=== PATIENT | female | born 1975 | race Native Hawaiian/Other Pacific Islander ===

== ENCOUNTER 2017-09-23 05:15 | Inpatient (IN) | payer OTHER ==
[2017-09-23] MEDS ORDERED: LACTATED RINGERS 1,000 ML ONE (05:49)
[2017-09-23] MEDS ORDERED: POLYCILLIN/NS 2 GM/100 ML 2 GM/100 ML BAG IV ONE ×2 (05:50→06:17)
[2017-09-23] MEDS ORDERED: PITOCin/NS 20 UNIT/1000ML DRIP 20,000 MILLIUNITS/1,000 ML BAG IV ONE (05:50)
[2017-09-23] MEDS ORDERED: LACTATED RINGERS 1,000 ML IV SCH (06:00)
[2017-09-23] MEDS ORDERED: BRETHINE SUB-Q PRN (06:17)
[2017-09-23] MEDS ORDERED: ePHEDrine SULFATE IV PRN (06:17)
[2017-09-23] MEDS ORDERED: SUBLIMAZE IV PRN (06:17)
[2017-09-23] MEDS ORDERED: XYLOCAINE 2% INFILTRATI ONE (06:17)
[2017-09-23] MEDS ORDERED: SUBLIMAZE ONE (06:21)
--- NOTE | 2017-09-23 06:24 | History and Physical Report ---
History of Present Illness Date of examination: 09/23/17 Date of admission: 09/23/17 05:31 Chief complaint: Labor History of present illness: 42 year old female reports contractions since noon yesterday. She states her water broke at midnight (6 hours, 20 minutes ago). She presents to L&D for active labor. She states she has received care at [facility] but we do not have records available and her partner states she only made 2 visits there. Patient denies any problems during this . Past History Past Medical History: no pertinent history Past Surgical History: no surgical history [employer] History: denies: herpes Family/Genetic History: diabetes Social history: , full code. denies: smoking, alcohol abuse, prescription drug abuse, IV drug use - Obstetrical History Expected Date of Delivery: 09/30/17 Actual Gestation: 39 Week(s) 0 Day(s) : 7 Para: 6 Hx # Term Pregnancies: 7 Number of Pregnancies: 0 Spontaneous Abortions: 0 Induced : 0 Number of Living Children: 6 Medications and Allergies Allergies Allergy/AdvReac Type Severity Reaction Status Date / Time No Known Allergies Allergy Verified 09/23/17 06:07 Active Meds: Active Medications Influenza Virus Vaccine Quadrival (Fluarix Quad 1423-3380(36 Mos+) 0.5 ml IM .ONCE ONE Stop: 09/23/17 12:01 Review of Systems All systems: negative (contractions and leaking of water) - Vital Signs Vital signs: Vital Signs Pulse BP 114 H 129/77 09/23/17 05:40 09/23/17 05:40 Temp Pulse Resp BP Pulse Ox 98.0 F 118 H 18 110/69 99 09/23/17 06:10 09/23/17 06:22 09/23/17 06:10 09/23/17 06:16 09/23/17 06:22 - Physical Exam Cardiovascular: Regular rate, Normal S1, Normal S2 Lungs: Positive: Clear to auscultation Abdomen: Positive: normal appearance, soft. Negative: distention, tenderness, guarding, rigidity Genitourinary (Female): Positive: normal external genitalia (no lesions seen on careful exam with bright light upon admission), normal perenium. Negative: perineal/vulvar lesions Uterus: Positive: enlarged. Negative: tender Anus/Rectum: Positive: normal perianal skin Extremities: Positive: normal. Negative: edema - Obstetrical FHR: category 1 Uterine Contraction Monitor Mode: External Cervical Dilatation: 7 Cervical Effacement Percentage: 100 station: 0 Uterine Contraction Pattern: Regular Uterine Contraction Intensity: Moderate Results Result Diagrams: 09/23/17 05:44 All other labs normal. Assessment and Plan A: at 39 weeks gestation. Active labor. GBS unknown. P: Admit. GBS prophylaxis. Anticipate .
[2017-09-23 06:39] LABS: Hematocrit 33.5 % (30.3-42.9); Hemoglobin 10.8 gm/dl (10.1-14.3); Mean Corpuscular HGB Conc 32 % (30-34); Mean Corpuscular Volume 77 fl (79-97); Platelet Count 156 K/mm3 (140-440); Red Blood Count 4.34 M/mm3 (3.65-5.03); Red Cell Distribution Width 16.9 % (13.2-15.2); White Blood Count 7.4 K/mm3 (4.5-11.0)
[2017-09-23] MEDS ORDERED: PITOCin/NS 20 UNIT/1000ML DRIP 20 UNITS/1,000 ML BAG IV SCH (07:00)
[2017-09-23 07:01] LABS: Mean Corpuscular Hemoglobin 25 pg (28-32)
--- NOTE | 2017-09-23 07:12 | Procedure Note ---
OB Delivery Note - Vaginal Delivery presentation: vertex Delivery position: OA Intrapartum events: none Delivery induction: none Delivery monitor: external FHT, external uterine Route of delivery: Delivery placenta: spontaneous Delivery cord: nuchal cord, 3 umbilical vessels Episiotomy: none Delivery laceration: 1st degree Delivery repair: vicryl Anesthesia: none Delivery comments: Spontaneous vaginal delivery of liveborn male weighing 7 lbs. 11 oz. with apgars of 8/9. Patient presented to L&D with ruptured membranes and advanced dilation. GBS status was unknown, and patient received one dose of Ampicillin prior to delivery. Tight nuchal cord noted times 1; double clamped and cut. Baby delivered easily and was placed on maternal chest immediately after delivery. Spontaneous cry and respirations. Baby bulb suctioned. Cord blood obtained. Spontaneous delivery of intact placenta and membranes by mosley mechanism. EBL 250 ml. Pitocin to IV fluids after delivery of placenta. Fundus firm and midline. 1 stitch placed in first degree laceration of perineum. Vaginal sweep negative. Sponge count correct. Mother and baby stable in birthing room.
[2017-09-23] MEDS ORDERED: TYLENOL PO PRN (08:00)
[2017-09-23] MEDS ORDERED: SODIUM CHLORIDE FLUSH SYRINGE 10 ML IV NR (08:00)
[2017-09-23] MEDS: MOTRIN PO SCH ×3 (08:25→20:26)
[2017-09-23 08:52] LABS: HIV-1 Antigen p24 Non React (Non React); HIVR-1/2 Ab Non React (Non React)
[2017-09-23] MEDS ORDERED: Fluarix Quad 2017-2018(36 MOS+ IM ONE (12:00)
[2017-09-23] MEDS ORDERED: DERMOPLAST TP PRN (14:10)
[2017-09-23] MEDS ORDERED: TUCKS PAD TP PRN (14:12)
[2017-09-23 19:18] LABS: Hematocrit 27.8 % (30.3-42.9); Hemoglobin 8.6 gm/dl (10.1-14.3)
[2017-09-24] MEDS: MOTRIN PO SCH ×4 (01:46→17:38)
--- NOTE | 2017-09-24 09:11 | Progress Note ---
Assessment and Plan A: PPD #1-stable P; Discharge home today Subjective - Subjective Date of service: 09/24/17 Principal diagnosis: Patient reports: appetite normal [place]: doing well Objective - Vital Signs Latest vital signs: Vital Signs Temp Pulse Resp BP BP Pulse Ox 09/24/17 04:20 98.6 F 81 16 106/75 09/24/17 00:00 98.6 F 66 16 117/78 09/23/17 20:30 98.6 F 71 16 121/76 09/23/17 17:22 98.2 F 56 L 18 102/58 97 09/23/17 11:55 98.3 F 64 18 106/60 Intake and Output 09/23/17 09/24/17 09/24/17 22:59 06:59 14:59 Intake Total 840 850 Output Total 400 Balance 440 850 Intake: Oral 240 250 Intake, Free Water 600 600 Output: Urine 400 Void 400 Other: Total, Intake Amount 240 250 Total, Output Amount 400 - Exam Breasts: Present: deferred Cardiovascular: Present: Regular rate Lungs: Present: Clear to auscultation Abdomen: Present: soft Vulva: both: normal Uterus: Present: fundal height below umbilicus Extremities: Present: normal Deep Tendon Reflex Grade: Normal +2 - Labs Labs: Abnormal lab results 09/23/17 Range/Units 18:59 Hgb 8.6 L (10.1-14.3) gm/dl Hct 27.8 L (30.3-42.9) %
--- NOTE | 2017-09-24 09:12 | Discharge Summary ---
Providers - Providers Date of Admission: 09/23/17 05:31 Date of discharge: 09/24/17 Attending physician: YOVANI BONNER MD Primary care physician: YOVANI BONNER MD Hospitalization Reason for admission: active labor Delivery: Episiotomy: none Laceration: none Other procedures: none complications: none Discharge diagnosis: IUP at term delivered [place] baby: male Condition at discharge: Good Disposition: DC-01 TO HOME OR SELFCARE Plan - Provider Discharge Summary Activity: routine, no sex for 6 weeks, no strenuous exercise Diet: routine Instructions: routine Additional instructions: [] Smoking cessation referral if applicable(refer to patient education folder for contact #) [] Refer to [facility] Call your doctor immediately for: * Fever > 100.5 * Heavy vaginal bleeding ( >1 pad per hour) * Severe persistent headache * Shortness of breath * Reddened, hot, painful area to leg or breast * Drainage or odor from incision. * Keep incision clean and dry at all times and follow doctor's instructions regarding bathing/showering - Follow up plan Follow up: YOVANI BONNER MD [Primary Care Provider] - 6 Weeks
[2017-09-25] MEDS: MOTRIN PO SCH (04:50)
[2017-09-25 08:55] VITALS: BP 97/61
== END 2017-09-25 13:27 | disposition home or self-care (01) | DRG 775 ==
LOC: TRG 05:15 → LD 05:31 → TRG 05:31 → OB 09:08
PROVIDERS: ADMIT Obstetrics & Gynecology; ATTEND Obstetrics & Gynecology
PROC: 3E0234Z Introduction of Serum, Toxoid and Vaccine into Muscle, Percutaneous Approach (ICD-10-PCS; 2017-09-23)
PROC: 10E0XZZ Delivery of Products of Conception, External Approach (ICD-10-PCS; principal; 2017-09-24)
PROC: 0HQ9XZZ Repair Perineum Skin, External Approach (ICD-10-PCS; 2017-09-24)
DX: O69.81X0 Labor and delivery complicated by cord around neck, without compression, not applicable or unspecified (principal); Z3A.39 39 weeks gestation of pregnancy; Z37.0 Single live birth; Z23 Encounter for immunization; O70.0 First degree perineal laceration during delivery; Z83.3 Family history of diabetes mellitus
CPT/HCPCS: 36415; 85014; 85018; 85027; 86592; 86706; 86762; 86803; 86850; 86900; 86901; 87806; 90686; J0290; J2590; J3010; J7120